=== PATIENT | male | born 1965 | race Hispanic/Latino ===

== ENCOUNTER → 2021-09-27 | Outpatient (CLI) | payer BC ==
[~2021-09-27] MED LIST: IOHEXOL 350 MG/ML 100ML INFUS..BTL IV ONE
== END | disposition home or self-care (01) ==
LOC: OIH 08:58
PROVIDERS: ATTEND Family Medicine
DX: N28.1 Cyst of kidney, acquired (principal); R16.0 Hepatomegaly, not elsewhere classified
CPT/HCPCS: 74170; Q9967

== ENCOUNTER → 2021-10-04 | Outpatient (CLI) | payer BC ==
[2021-10-04 10:23] LABS: INR 1.03 (0.85-1.15); PROTHROMBIN TIME 11.2 SEC (9.6-11.6)
[2021-10-04 10:25] LABS: PARTIAL THROMBOPLASTIN TIME 34.1 SEC (26.3-35.5)
== END | disposition home or self-care (01) ==
LOC: RAH 09:36
PROVIDERS: ATTEND Family Medicine
DX: K76.89 Other specified diseases of liver (principal); K75.0 Abscess of liver
CPT/HCPCS: 36415; 76705; 85610; 85730

== ENCOUNTER 2021-10-26 08:48 | Day surgery (SDC) | payer BC ==
[2021-10-26 09:29] LABS: MEAN CORPUSCULAR HEMOGLOBIN 27.3 pg (27.0-33.0); MEAN CORPUSCULAR HGB CONC 32.6 g/dL (32.0-36.0); MEAN CORPUSCULAR VOLUME 83.7 fL (79-99); PLATELET COUNT (AUTO) 321 K/uL (130-400); RED BLOOD CELL COUNT(AUTO) 4.54 MIL/uL (4.50-6.20); RED CELL DISTRIBUTION WIDTH 13.5 % (11.0-15.5); WHITE BLOOD COUNT (AUTO) 7.2 K/uL (4.8-10.8)
[2021-10-26 09:42] LABS: INR 1.1 (0.85-1.15); PROTHROMBIN TIME 11.9 SEC (9.6-11.6)
[2021-10-26 09:44] LABS: PARTIAL THROMBOPLASTIN TIME 31.1 SEC (26.3-35.5)
[2021-10-26 09:53] LABS: LYMPHOCYTES % (MANUAL) 22 % (22-44); MAN.DIFF COMMENT-IMPRESSION MANUAL DIFFERENTIAL; MONOCYTES % (MANUAL) 5 % (2-9); PLATELET MORPHOLOGY COMMENT ADEQUATE; SEGMENTED NEUTROPHILS % 73 % (40-70)
[2021-10-26 09:55] LABS: BILIRUBIN,TOTAL 0.4 mg/dL (0.2-1.0); CREATININE 0.9 mg/dL (0.5-1.5); POTASSIUM 4.3 mmol/L (3.5-5.1); TOTAL PROTEIN, SERUM 7.5 g/dL (6.0-8.3)
[2021-10-26] MEDS ORDERED: MIDAZOLAM HCL 1 MG/ML 2ML VIAL ONE (14:15)
[2021-10-26] MEDS ORDERED: FENTANYL CITRATE PF 50 MCG/1 ML 2ML VIAL ONE (14:15)
== END 2021-10-26 17:03 | disposition home or self-care (01) ==
LOC: DAH 08:48
PROVIDERS: ATTEND Internal Medicine Gastroenterology
DX: R93.2 Abnormal findings on diagnostic imaging of liver and biliary tract (principal); K75.0 Abscess of liver; Z20.822 Contact with and (suspected) exposure to COVID-19; Z79.01 Long term (current) use of anticoagulants; Z88.0 Allergy status to penicillin
CPT/HCPCS: 36415; 49405; 76705; 80053; 85025; 85610; 85730; 87071; 87205; A4215; A4216; A4221; A4222; A4223 ×3; A4606; A4663; C1729 ×2; C1769; J2250; J3010; 10030; 76942; 99152; 99153